=== PATIENT | female | born 1995 | race African-American/Black ===

== ENCOUNTER 2020-05-16 09:13 | Emergency (ER) | payer BC, MEDICAID ==
[2020-05-16 09:23] VITALS: BP 143/87
[2020-05-16] MEDS ORDERED: NORMAL SALINE 1000 ML 1,000 ML IV ONE (10:31)
[2020-05-16] MEDS ORDERED: PROCHLORPERAZINE EDISYLATE INJ 10 MG/2 ML VIAL IV ONE (10:31)
[2020-05-16] MEDS ORDERED: DIPHENHYDRAMINE HCL 50 MG/ML VIAL IV ONE (10:31)
--- NOTE | 2020-05-16 10:34 | ER Document Report ---
ED Headache - General Chief Complaint: Headache Stated Complaint: HEADACHE Time Seen by Provider: 05/16/20 10:12 Primary Care Provider: JESSE MORAN MD [ACTIVE STAFF] - Follow up as needed Mode of Arrival: Ambulatory Information source: Patient Notes: Patient presents complaining of left-sided headache pain for the past 4 days. Patient states headache started gradually and continue to worsen. Patient does report nausea and vomiting x1 episode today. Patient does report some photophobia. Patient is currently 11 weeks G1, P0. Patient states headache is similar to headache she is had in the past. Patient does states she has had some occasional blurred vision to the left eye with headache. Patient does wear contact lenses and has women at this time. - HPI Patient complains to provider of: Headache Onset: Other - 4 days Onset was: Gradual Timing: Still present Quality of pain: Sharp, Throbbing Pain Level: 4 Associated symptoms: Nausea/vomiting. denies: Dizzy, Fever, Lightheaded, Neck pain Exacerbated by: Light Similar symptoms previously: Yes Recently seen / treated by doctor: No - Related Data Allergies/Adverse Reactions: coconut Allergy (Verified 05/16/20 09:25) Past Medical History - General Information source: Patient - Social History Smoking Status: Never Smoker Frequency of alcohol use: None Drug Abuse: None Occupation: Customer service Lives with: Family Family History: Reviewed & Not Pertinent Pulmonary Medical History: Reports: Hx Asthma Neurological Medical History: Reports: Hx Migraine Psychiatric Medical History: Reports: Hx Anxiety, Hx Depression Surgical Hx: Negative Review of Systems - Review of Systems Constitutional: No symptoms reported. denies: Fever, Recent illness EENT: Blurred vision Cardiovascular: No symptoms reported. denies: Chest pain, Dizziness Respiratory: No symptoms reported. denies: Cough, Short of breath Gastrointestinal: Nausea, Vomiting. denies: Abdominal pain Genitourinary: No symptoms reported Female Genitourinary: No symptoms reported Musculoskeletal: No symptoms reported. denies: Back pain, Neck pain Skin: No symptoms reported. denies: Rash Hematologic/Lymphatic: No symptoms reported Neurological/Psychological: Headaches. denies: Weakness Physical Exam - Vital signs Vitals: Temp Pulse Resp BP Pulse Ox 99.1 F 96 18 143/87 H 99 05/16/20 09:21 05/16/20 09:21 05/16/20 09:21 05/16/20 09:21 05/16/20 09:21 - General General appearance: Appears well, Alert In distress: None - HEENT Head: Normocephalic, Atraumatic Eyes: Normal Conjunctiva: Normal Extraocular movements intact: Yes Eyelashes: Normal Pupils: PERRL Fundascopic: No: Retinal detachment Ears: Normal External canal: Normal Nasal: Normal Mouth/Lips: Normal Mucous membranes: Normal Pharynx: Normal. No: Erythema, Potential airway comprom. Neck: Normal, Supple. No: Meningismus - Respiratory Respiratory status: No respiratory distress Chest status: Nontender Breath sounds: Normal. No: Rales, Rhonchi, Stridor, Wheezing Chest palpation: Normal - Cardiovascular Rhythm: Regular Heart sounds: S1 appreciated, S2 appreciated Murmur: No - Abdominal Inspection: Normal Tenderness: Nontender - Back Back: Normal, Nontender. No: CVA tenderness, Vertebra tenderness - Extremities General upper extremity: Normal inspection, Normal ROM General lower extremity: Normal inspection, Normal ROM - Neurological Neuro grossly intact: Yes Cognition: Normal Orientation: AAOx4 [place] Coma Scale Eye Opening: Spontaneous Светлана Coma Scale Verbal: Oriented Светлана Coma Scale Motor: Obeys Commands Светлана Coma Scale Total: 15 Speech: Normal - Psychological Associated symptoms: Normal affect, Normal mood - Skin Skin Temperature: Warm Skin Moisture: Dry Skin Color: Normal Course - Re-evaluation Re-evalutation: 05/16/20 13:15 Patient reports headache pain has decreased to 1/5 scale. Patient reports that blurred vision to the left eye has resolved as well. Patient feeling much better. 05/16/20 13:18 The patient presents with headache without signs of MINING SUPPORT WORKER bleed, stroke, infection, or other serious etiology. The patient is neurologically intact. Given the extremely low risk of these diagnoses further testing and evaluation for these possibilities does not appear to be indicated at this time. The patient has been instructed to return if the symptoms worsen or change in any way. - Vital Signs Vital signs: Temp Pulse Resp BP Pulse Ox 99.1 F 96 18 143/87 H 99 05/16/20 09:21 05/16/20 09:21 05/16/20 09:21 05/16/20 09:21 05/16/20 09:21 Discharge - Discharge Clinical Impression: Headache Qualifiers: Headache type: unspecified Headache chronicity pattern: unspecified pattern Intractability: not intractable Qualified Code(s): R51.9 - Headache, unspecified Condition: Stable Disposition: HOME, SELF-CARE Instructions: Intravenous Compazine for Headaches ([facility]), Use of Diphenhydramine, Headache ([facility]) Additional Instructions: Return immediately for any new or worsening symptoms Followup with your primary care provider, call tomorrow to make a followup appointment Forms: Return to Work Referrals: JESSE MORAN MD [ACTIVE STAFF] - Follow up as needed
[2020-05-16] MEDS ORDERED: ACETAMINOPHEN 325 MG TABLET PO ONE (13:14)
== END 2020-05-16 13:29 | disposition home or self-care (01) ==
LOC: ER 09:13
DX: O26.891 Other specified pregnancy related conditions, first trimester (principal); R51.9 Headache, unspecified; H53.149 Visual discomfort, unspecified; H53.8 Other visual disturbances; O21.9 Vomiting of pregnancy, unspecified; O99.511 Diseases of the respiratory system complicating pregnancy, first trimester; J45.909 Unspecified asthma, uncomplicated; Z3A.11 11 weeks gestation of pregnancy; Z86.69 Personal history of other diseases of the nervous system and sense organs; Z91.018 Allergy to other foods
CPT/HCPCS: 99284; 96361; 96374; 96375; J1200; J0780; J7030

== ENCOUNTER 2020-07-30 12:17 | Emergency (ER) | payer BC, MEDICAID ==
[2020-07-30] MEDS ORDERED: NORMAL SALINE 1000 ML 1,000 ML IV ONE (13:33)
--- NOTE | 2020-07-30 13:34 | ER Document Report ---
ED Medical Screen (RME) - General Chief Complaint: Headache Stated Complaint: HIGH FEVER Time Seen by Provider: 07/30/20 13:31 Information source: Patient Notes: Patient presents for 6 months G1, P0. Patient complains of migraine headache for the past 3 days. Patient reports fever that started yesterday as high as 101. Patient does report cough and cold symptoms for the past 2 days with some throat discomfort. Patient denies any nausea or vomiting. I have greeted and performed a rapid initial assessment of this patient. A comprehensive ED assessment and evaluation of the patient, analysis of test results and completion of the medical decision making process will be conducted by additional ED providers. - Related Data Allergies/Adverse Reactions: coconut Allergy (Verified 07/30/20 13:26) Past Medical History Pulmonary Medical History: Reports: Hx Asthma Neurological Medical History: Reports: Hx Migraine Psychiatric Medical History: Reports: Hx Anxiety, Hx Depression Physical Exam - Vital signs Vitals: Temp Pulse Resp BP Pulse Ox 98.4 F 118 H 16 141/81 H 100 07/30/20 12:33 07/30/20 12:33 07/30/20 12:33 07/30/20 12:33 07/30/20 12:33 - General General appearance: Appears well, Alert - Respiratory Respiratory status: No respiratory distress Breath sounds: Nonproductive cough Course - Vital Signs Vital signs: Temp Pulse Resp BP Pulse Ox 98.4 F 118 H 16 141/81 H 100 07/30/20 12:33 07/30/20 12:33 07/30/20 12:33 07/30/20 12:33 07/30/20 12:33
--- NOTE | 2020-07-30 14:07 | ER Document Report ---
ED General - General Chief Complaint: Headache Stated Complaint: HIGH FEVER Time Seen by Provider: 07/30/20 13:31 Primary Care Provider: [facility] [Provider Group] - Follow up in 1 week - HPI Notes: 25-year-old female to the emergency department with cough, congestion, headache, fever that began about 3 days ago with associated body aches. She states that she is about 6 weeks . Denies any nausea, vomiting, abdominal pain. She is [facility]. This is her first . She is not had any vaginal bleeding. She states that 3 days ago she started to have upper respiratory symptoms and then progressively continued. Her partner at home also has the same symptoms. She states that she does not think that she has been exposed to anybody with Covid. She also does not think she has been exposed anyone with flu. She states that she took her temperature this morning at home and it was 101. She states she did take a Tylenol this morning. She states that helped with her fever but her headache is still present. Denies any neck pain or rash. Denies any shortness of breath. - Related Data Allergies/Adverse Reactions: coconut Allergy (Verified 07/30/20 15:45) Past Medical History - General Information source: Patient - Social History Smoking Status: Never Smoker Family History: Reviewed & Not Pertinent Pulmonary Medical History: Reports: Hx Asthma Neurological Medical History: Reports: Hx Migraine Psychiatric Medical History: Reports: Hx Anxiety, Hx Depression Review of Systems - Review of Systems Constitutional: Chills, Fever EENT: See HPI, Nose congestion, Throat pain Cardiovascular: denies: Chest pain, Palpitations, Heart racing, Syncope, Dizziness, Lightheaded Respiratory: Cough. denies: Short of breath, Wheezing Gastrointestinal: denies: Abdominal pain, Diarrhea, Nausea, Vomiting Genitourinary: No symptoms reported Female Genitourinary: . denies: Heavy/abnormal periods, Irregular period, Vaginal discharge, Vaginal bleeding, Vaginal odor, Painful intercourse Musculoskeletal: Muscle pain - Body aches Skin: No symptoms reported Hematologic/Lymphatic: No symptoms reported Neurological/Psychological: No symptoms reported -: Yes All other systems reviewed and negative Physical Exam - Vital signs Vitals: Temp Pulse Resp BP Pulse Ox 98.4 F 118 H 16 141/81 H 100 07/30/20 12:33 07/30/20 12:33 07/30/20 12:33 07/30/20 12:33 07/30/20 12:33 Interpretation: Normal - Notes Notes: PHYSICAL EXAMINATION: GENERAL: Well-appearing, well-nourished and in no acute distress. HEAD: Atraumatic, normocephalic. EYES: Pupils equal round and reactive to light, extraocular movements intact, sclera anicteric, conjunctiva are normal. ENT: nares patent, oropharynx clear without exudates. Moist mucous membranes. TMs are clear bilaterally. Airway is grossly patent. No Darryl's angina NECK: Normal range of motion, supple without lymphadenopathy LUNGS: Breath sounds clear to auscultation bilaterally and equal. No wheezes rales or rhonchi. No accessory muscle use. Not hypoxic on vital signs HEART: Regular rate and rhythm without murmurs ABDOMEN: Gravid abdomen with fundus above the umbilicus. Nontender to palpation. heart tones are 145 on my bedside Doppler exam. No CVA tenderness. EXTREMITIES: Normal range of motion, no pitting or edema. No cyanosis. NEUROLOGICAL: No focal neurological deficits. Moves all extremities spontaneously and on command. PSYCH: Normal mood, normal affect. SKIN: Warm, Dry, normal turgor, no rashes or lesions noted. Course - Re-evaluation Re-evalutation: Impression: Viral upper respiratory illness -- highly suspicious for COVID. I performed bedside doppler and got FHR at 143. Labs are reassuring- she did have an inital low blood sugar, but was fed. Her BS improved to 123. She is feeling better after reglan and benadryl. Encouraged Tylenol use for fevers and body aches, follow up with OBGYN and return immediately if worsening symptoms/SOB/abd pain/vag bleeding. Patient agrees with the plan. - Vital Signs Vital signs: Temp Pulse Resp BP Pulse Ox 98.4 F 98 18 118/69 100 07/30/20 17:46 07/30/20 17:46 07/30/20 17:46 07/30/20 17:46 07/30/20 17:46 Noted significant improvement of vital signs since arrival. - Laboratory Results Result Diagrams: 07/30/20 13:59 07/30/20 13:59 Laboratory Results Interpreted: 07/30/20 07/30/20 07/30/20 13:59 13:59 14:37 WBC 12.3 H Hgb 11.2 L Hct 33.5 L RDW 14.4 H Lymph % (Auto) 12.3 L Absolute Neuts (auto) 9.8 H Seg Neutrophils % 79.6 H Sodium 136.1 L BUN 6 L Creatinine 0.41 L Glucose 60 L POC Glucose Leukocyte Esterase Rfl LARGE H 07/30/20 16:38 WBC Hgb Hct RDW Lymph % (Auto) Absolute Neuts (auto) Seg Neutrophils % Sodium BUN Creatinine Glucose POC Glucose 123 H Leukocyte Esterase Rfl Critical Laboratory Results Reviewed: No Critical Results - Radiology Results Critical Radiology Results Reviewed: No Critical Results Discharge - Discharge Clinical Impression: Viral upper respiratory illness, Encounter for laboratory testing for COVID-19 virus, Cough, Generalized body aches Fever Qualifiers: Fever type: unspecified Qualified Code(s): R50.9 - Fever, unspecified Headache Qualifiers: Headache type: unspecified Headache chronicity pattern: acute headache Intractability: not intractable Qualified Code(s): R51.9 - Headache, unspecified Qualifiers: Weeks of gestation: 24 weeks Qualified Code(s): Z3A.24 - 24 weeks gestation of Condition: Stable Disposition: HOME, SELF-CARE Instructions: COVID-19 Guidance for Persons Under Investigation, Upper Respiratory Illness ([facility]), Viral Syndrome ([facility]) Additional Instructions: Please continue to take Tylenol for your headache and fevers. Push fluids. Follow-up with your EXERCISE RIDER in the next week. You have been tested for Covid. That result will come back and 3 to 5 days. Please quarantine and wear a mask until you have the results. Please return immediately if you have worsening shortness of breath, intractable vomiting, vaginal bleeding, abdominal pain. As a person under investigation for COVID-19, [facility], division of public health advises you to adhere to the following guidance until your test results are reported to you. If your test result is positive, you will receive additional information from your provider and your local health department at that time. Remain at home until you are cleared by the healthcare provider public health authorities. Keep a log of visitors to your home and notify any visitors to your home of your isolation status. If you plan to move to a new address or leave the country, notify the local health department and your County. Call your doctor or seek care if you have an urgent medical need. Before seeking medical care, call ahead to get instructions from the provider before arriving at the medical office, clinic, or hospital. Notify them that you are being tested for the virus that causes COVID-19 so that arrangements can be made, as necessary, to prevent transmission to others in the healthcare setting. Next, notify the local health department and your County. If a medical emergency arises and you need to call 911, informed the first responders that you are being tested for the virus that causes COVID-19. Next, notified the local health department and your [facility]. Forms: Return to Work Referrals: [facility] [Provider Group] - Follow up in 1 week
--- NOTE | 2020-07-30 14:28 | RADIOLOGY REPORT (SQ) ---
EXAM DESCRIPTION: CHEST SINGLE VIEW IMAGES COMPLETED DATE/TIME: 07/30/2020 2:18 pm REASON FOR STUDY: fever, cough COMPARISON: None. EXAM PARAMETERS: NUMBER OF VIEWS: One view. TECHNIQUE: Single frontal radiographic view of the chest acquired. RADIATION DOSE: NA LIMITATIONS: None. FINDINGS: LUNGS AND PLEURA: No opacities, masses or pneumothorax. No pleural effusion. MEDIASTINUM AND HILAR STRUCTURES: No masses. Contour normal. HEART AND VASCULAR STRUCTURES: Heart normal in size. Normal vasculature. BONES: No acute findings. HARDWARE: None in the chest. OTHER: No other significant finding. IMPRESSION: NO ACUTE RADIOGRAPHIC FINDING IN THE CHEST. TECHNICAL DOCUMENTATION: JOB ID: [id number] [place]-72 2010 [employer]- All Rights Reserved Reading location - IP/workstation name: [email or web address]
[2020-07-30 14:39] LABS: A TYPE INFLUENZA AG NEGATIVE (NEGATIVE); B INFLUENZA AG NEGATIVE (NEGATIVE)
[2020-07-30 14:41] LABS: ABSOLUTE BASOPHILS # (AUTO) 0.1 10^3/uL (0.0-0.2); ABSOLUTE EOSINOPHILS # (AUTO) 0.2 10^3/uL (0.0-0.6); ABSOLUTE LYMPHOCYTES (AUTO) 1.5 10^3/uL (0.5-4.7); ABSOLUTE MONOCYTES (AUTO) 0.7 10^3/uL (0.1-1.4); ABSOLUTE NEUT (AUTO) 9.8 10^3/uL (1.7-8.2); ALBUMIN 4.2 g/dL (3.5-5.0); ALKALINE PHOSPHATASE 72 U/L (38-126); ANION GAP 9 (5-19); ASPARTATE AMINO TRANSFERASE 24 U/L (14-36); BASOPHILS % (AUTO) 0.8 % (0-2); BILIRUBIN,DIRECT 0.1 mg/dL (0.0-0.4); BILIRUBIN,TOTAL 0.9 mg/dL (0.2-1.3); BLOOD UREA NITROGEN 6 mg/dL (7-20); CALCIUM 9.6 mg/dL (8.4-10.2); CARBON DIOXIDE 22 mmol/L (22-30); CHLORIDE 105 mmol/L (98-107); EOSINOPHILS % (AUTO) 1.7 % (0-6); HEMATOCRIT 33.5 % (36.0-47.0); HEMOGLOBIN 11.2 g/dL (12.0-15.5); LYMPHOCYTES % (AUTO) 12.3 % (13-45); MEAN CORPUSCULAR HEMOGLOBIN 29.1 pg (27.0-33.4); MEAN CORPUSCULAR HGB CONC 33.3 g/dL (32.0-36.0); MEAN CORPUSCULAR VOLUME 87 fl (80-97); MONOCYTES % (AUTO) 5.6 % (3-13); PLATELET COUNT 344 10^3/uL (150-450); POTASSIUM 3.9 mmol/L (3.6-5.0); RED BLOOD COUNT 3.84 10^6/uL (3.72-5.28); RED CELL DISTRIBUTION WIDTH 14.4 % (11.5-14.0); SEGMENTED NEUTROPHILS % (AUTO) 79.6 % (42-78); TOTAL CELLS COUNTED % (AUTO) 100 %; TOTAL PROTEIN 7.3 g/dL (6.3-8.2); WHITE BLOOD COUNT 12.3 10^3/uL (4.0-10.5)
[2020-07-30 14:42] LABS: GLUCOSE 60 mg/dL (75-110)
[2020-07-30 15:21] LABS: APPEARANCE,URINE SLIGHTLY-CLOUDY; BILIRUBIN,URINE NEGATIVE (NEGATIVE); COLOR,URINE YELLOW; GLUCOSE, URINE NEGATIVE (NEGATIVE); KETONES,URINE NEGATIVE (NEGATIVE); PROTEIN,URINE NEGATIVE (NEGATIVE); URINE SPECIFIC GRAVITY 1.019; UROBILINOGEN,URINE NEGATIVE mg/dL (<2.0)
[2020-07-30] MEDS ORDERED: DIPHENHYDRAMINE HCL 50 MG/ML VIAL IV ONE (15:39)
[2020-07-30] MEDS ORDERED: METOCLOPRAMIDE HCL INJ/PF 10 MG/2 ML SDV IV ONE (15:39)
[2020-07-30 17:56] VITALS: BP 118/69
== END 2020-07-30 17:56 | disposition home or self-care (01) ==
LOC: ER 12:17
DX: O99.512 Diseases of the respiratory system complicating pregnancy, second trimester (principal); J06.9 Acute upper respiratory infection, unspecified; O26.892 Other specified pregnancy related conditions, second trimester; R51.9 Headache, unspecified; R50.9 Fever, unspecified; R05 Cough; R09.81 Nasal congestion; M79.10 Myalgia, unspecified site; Z3A.24 24 weeks gestation of pregnancy; J45.909 Unspecified asthma, uncomplicated; Z20.828 Contact with and (suspected) exposure to other viral communicable diseases
CPT/HCPCS: 99284; 96361; 96374; 96375; 36415; 87070; 87086; 87880; 82962; 85025; 87088; 80076; 80048; 81001; 87804; 71045; U0003; J1200; J2765; J7030; C9803; 87635

== ENCOUNTER 2020-08-23 18:58 | Emergency (ER) | payer BC, MEDICAID ==
--- NOTE | 2020-08-23 19:17 | EKG REPORT ---
SEVERITY:- NORMAL ECG - SINUS RHYTHM : Confirmed by: Heather Alvarez MD 23-Aug-2020 19:17:26
--- NOTE | 2020-08-23 19:27 | ER Document Report ---
ED Medical Screen (RME) - General Chief Complaint: Shortness Of Breath Stated Complaint: SHORT OF BREATH,CHEST PAIN Time Seen by Provider: 08/23/20 19:17 Primary Care Provider: HELDER VERGARA MD [Primary Care Provider] - Follow up as needed - [facility] Notes: 08/23/20 19:25 25-year-old female G1, P0 who is 25 weeks with a history of asthma presents to the emergency room with chest discomfort that started around 2 PM today with some shortness of breath. Reports that chest discomfort has been constant denies any radiation of pain to neck back or arm. Reports is a dull ache, 3 out of 5. reports pain started on the left side then went to the right side and substernal. She thought at first this was just gas, she did try to take some anti-gas medication without relief. [facility]. Non-smoker. Denies any cardiac history on her mother father side. Denies any lightheadedness, dizziness, nausea, vomiting, diarrhea. I have greeted and performed a rapid initial assessment of this patient. A comprehensive ED assessment and evaluation of the patient, analysis of test results and completion of the medical decision making process will be conducted by additional ED providers. PHYSICAL EXAMINATION: GENERAL: Well-appearing, well-nourished and in no acute distress. HEAD: Atraumatic, normocephalic. EYES: Pupils equal round extraocular movements intact, conjunctiva are normal. NECK: Normal range of motion CV: s1, s2 regular abd: Fundus above umbilicus LUNGS: No respiratory distress Musculoskeletal: Normal range of motion NEUROLOGICAL: Normal speech, normal gait. SKIN: Warm, Dry, normal turgor, no rashes or lesions noted. The patient was evaluated during a global COVID-19 pandemic and that diagnosis was suspected/considered upon their initial presentation. Their evaluation, treatment and testing was consistent with current guidelines for patients who present with complaints or symptoms and may be related to COVID-19. 08/23/20 19:27 - Related Data Allergies/Adverse Reactions: coconut Allergy (Verified 07/30/20 15:45) Past Medical History Pulmonary Medical History: Reports: Hx Asthma Neurological Medical History: Reports: Hx Migraine Psychiatric Medical History: Reports: Hx Anxiety, Hx Depression Physical Exam - Vital signs Vitals: Temp Pulse Resp BP Pulse Ox 98.3 F 96 20 122/66 100 01/12/21 19:05 08/23/20 19:05 08/23/20 19:05 08/23/20 19:05 08/23/20 19:05 Course - Vital Signs Vital signs: Temp Pulse Resp BP Pulse Ox 98.3 F 96 20 122/66 100 08/23/20 19:05 08/23/20 19:05 08/23/20 19:05 08/23/20 19:05 08/23/20 19:05 Doctor's Discharge - Discharge Referrals: HELDER VERGARA MD [Primary Care Provider] - Follow up as needed
[2020-08-23 19:55] LABS: ABSOLUTE BASOPHILS # (AUTO) 0.1 10^3/uL (0.0-0.2); ABSOLUTE EOSINOPHILS # (AUTO) 0.2 10^3/uL (0.0-0.6); ABSOLUTE LYMPHOCYTES (AUTO) 1.7 10^3/uL (0.5-4.7); ABSOLUTE MONOCYTES (AUTO) 0.9 10^3/uL (0.1-1.4); ABSOLUTE NEUT (AUTO) 7.9 10^3/uL (1.7-8.2); BASOPHILS % (AUTO) 0.5 % (0-2); EOSINOPHILS % (AUTO) 1.4 % (0-6); HEMOGLOBIN 10.6 g/dL (12.0-15.5); LYMPHOCYTES % (AUTO) 16.2 % (13-45); MEAN CORPUSCULAR HGB CONC 34.1 g/dL (32.0-36.0); MEAN CORPUSCULAR VOLUME 85 fl (80-97); MONOCYTES % (AUTO) 8.1 % (3-13); PLATELET COUNT 445 10^3/uL (150-450); RED BLOOD COUNT 3.64 10^6/uL (3.72-5.28); RED CELL DISTRIBUTION WIDTH 13.9 % (11.5-14.0); SEGMENTED NEUTROPHILS % (AUTO) 73.8 % (42-78); TOTAL CELLS COUNTED % (AUTO) 100 %; WHITE BLOOD COUNT 10.7 10^3/uL (4.0-10.5)
[2020-08-23 20:08] LABS: APPEARANCE,URINE CLEAR; BILIRUBIN,URINE NEGATIVE (NEGATIVE); COLOR,URINE STRAW; GLUCOSE, URINE NEGATIVE (NEGATIVE); KETONES,URINE NEGATIVE (NEGATIVE); LEUKOCYTE ESTERASE,URINE LARGE (NEGATIVE); NITRITE,URINE NEGATIVE (NEGATIVE); PROTEIN,URINE NEGATIVE (NEGATIVE); URINE SPECIFIC GRAVITY 1.005; UROBILINOGEN,URINE NEGATIVE mg/dL (<2.0)
[2020-08-23 20:11] LABS: ALBUMIN 3.9 g/dL (3.5-5.0); ALKALINE PHOSPHATASE 84 U/L (38-126); ANION GAP 5 (5-19); ASPARTATE AMINO TRANSFERASE 18 U/L (14-36); BILIRUBIN,DIRECT 0.1 mg/dL (0.0-0.4); BILIRUBIN,TOTAL 0.7 mg/dL (0.2-1.3); BLOOD UREA NITROGEN 6 mg/dL (7-20); CALCIUM 9.6 mg/dL (8.4-10.2); CARBON DIOXIDE 28 mmol/L (22-30); CHLORIDE 102 mmol/L (98-107); GLUCOSE 76 mg/dL (75-110); TOTAL PROTEIN 6.9 g/dL (6.3-8.2)
[2020-08-24] MEDS ORDERED: ACETAMINOPHEN 325 MG TABLET PO ONE (00:02)
[2020-08-24] MEDS ORDERED: LIDOCAINE 5% (700 MG) TRANSDERMAL ADH..PATCH TP ONE (00:03)
--- NOTE | 2020-08-24 00:30 | RADIOLOGY REPORT (SQ) ---
EXAM: CHEST SINGLE VIEW CLINICAL INDICATION: 25-year-old female with shortness of breath. TECHNIQUE: Single view, AP portable chest was obtained. COMPARISON: None. FINDINGS: Unremarkable cardiac and mediastinal silhouette. Heart size is normal. Lungs are clear without focal opacity, pneumothorax or pleural effusions. The visualized bones are within normal limits. IMPRESSION: No acute cardiopulmonary abnormalities.
[2020-08-24 01:52] VITALS: BP 125/74
--- NOTE | 2020-08-24 01:56 | ER Document Report ---
ED General - General Chief Complaint: Chest Pain Stated Complaint: SHORT OF BREATH,CHEST PAIN Time Seen by Provider: 08/23/20 19:17 Primary Care Provider: HELDER VERGARA MD [Primary Care Provider] - Follow up as needed - HPI Notes: 25-year-old female at 25 weeks gestation presents with chest pain. Patient states that she woke up and had central chest pain, described as a cramping, did not radiate, worse with touching the area and taking a deep breath. States that she had some shortness of breath earlier today but that has now resolved. No cough, fever. She has not taken any medications for pain. She denies abdominal pain, abdominal cramping, vaginal bleeding or discharge. She denies burning sensation or sour taste in her mouth. - Related Data Allergies/Adverse Reactions: coconut Allergy (Verified 08/23/20 21:56) Home Medications: PRE-NATALS. PROLOSEC Past Medical History - General Information source: Patient - Social History Smoking Status: Former Smoker Frequency of alcohol use: None Drug Abuse: None Family History: Reviewed & Not Pertinent Pulmonary Medical History: Reports: Hx Asthma Neurological Medical History: Reports: Hx Migraine Psychiatric Medical History: Reports: Hx Anxiety, Hx Depression Review of Systems - Review of Systems Constitutional: denies: Fever EENT: No symptoms reported Cardiovascular: See HPI Respiratory: See HPI Gastrointestinal: No symptoms reported Genitourinary: No symptoms reported Female Genitourinary: Musculoskeletal: No symptoms reported Skin: No symptoms reported Hematologic/Lymphatic: No symptoms reported Neurological/Psychological: No symptoms reported Physical Exam - Vital signs Vitals: Temp Pulse Resp BP Pulse Ox 98.3 F 96 20 122/66 100 08/23/20 19:05 08/23/20 19:05 08/23/20 19:05 08/23/20 19:05 08/23/20 19:05 - General General appearance: Appears well, Alert In distress: None - HEENT Head: Normocephalic, Atraumatic Extraocular movements intact: Yes Pupils: PERRL - Respiratory Chest status: Tender - Parasternal Breath sounds: Normal - Cardiovascular Rhythm: Regular Heart sounds: Normal auscultation - Abdominal Inspection: Gravid female Tenderness: Nontender - Extremities General lower extremity: No: Edema - Neurological Neuro grossly intact: Yes Cognition: Normal Orientation: AAOx4 - Psychological Associated symptoms: Normal affect - Skin Skin Temperature: Warm Course - Re-evaluation Re-evalutation: 25-year-old female at 25 weeks gestation here with central chest pain onset today. On exam patient is alert and well-appearing, afebrile and hemo dynamically stable. She has chest wall tenderness to the middle/lower portion of her sternum. Her lungs are clear, heart RRR, abdomen is soft. She had a laboratory evaluation done through the triage process which was grossly unremarkable including a negative troponin. Her EKG is nonischemic. Chest x- ray is without consolidation. Discussed with patient that she is likely having musculoskeletal pain. I would have low suspicion for cardiopulmonary etiology at this time. Have ordered Tylenol lidocaine patch for symptomatic control. 08/24/20 01:55 Patient reports improvement in her symptoms. Stable time discharge. - Vital Signs Vital signs: Temp Pulse Resp BP Pulse Ox 99.3 F 81 18 125/74 100 08/24/20 01:51 08/24/20 01:51 08/24/20 01:51 08/24/20 01:51 08/24/20 01:51 - Laboratory Results Result Diagrams: 08/23/20 18:43 08/23/20 18:43 Laboratory Results Interpreted: 08/23/20 08/23/20 08/23/20 18:43 18:43 18:43 WBC 10.7 H RBC 3.64 L Hgb 10.6 L Hct 31.0 L Sodium 135.3 L BUN 6 L Creatinine 0.51 L Beta HCG, Quant 29681.00 H Ur Leukocyte Esterase LARGE H Critical Laboratory Results Reviewed: No Critical Results - Radiology Results Critical Radiology Results Reviewed: No Critical Results - EKG Interpretation by Me Additional EKG results interpreted by me: EKG is interpreted by me. Sinus rhythm, rate 92. Narrow QRS, QTC within normal limits. No ST segment elevation or depression. Discharge - Discharge Clinical Impression: Chest wall pain Disposition: HOME, SELF-CARE Additional Instructions: Continue Tylenol for pain. Please follow-up with your COUNTY ATTORNEY. Return to the emergency department for any concerning worsening symptoms. Forms: Return to Work Referrals: HELDER VERGARA MD [Primary Care Provider] - Follow up as needed
== END 2020-08-24 02:05 | disposition home or self-care (01) ==
LOC: ER 18:58
DX: O26.892 Other specified pregnancy related conditions, second trimester (principal); R07.89 Other chest pain; O99.512 Diseases of the respiratory system complicating pregnancy, second trimester; J45.909 Unspecified asthma, uncomplicated; Z79.899 Other long term (current) drug therapy; Z87.891 Personal history of nicotine dependence; Z91.018 Allergy to other foods; Z3A.25 25 weeks gestation of pregnancy
CPT/HCPCS: 36415; 71045; 80053; 81001; 84484; 84702; 85025; 93005; 93010; 99285